=== PATIENT | female | born 1990 ===

== ENCOUNTER 2017-03-28 10:54 | Emergency (ER) | payer OTHER, SELFPAY ==
[2017-03-28 11:24] VITALS: BMI 32.6
[2017-03-28 11:26] VITALS: TEMP 98.5; O2SAT 100
--- NOTE | 2017-03-28 12:34 | RAD ---
PROCEDURE: Radiographs of Nasal Bones HISTORY: trauma COMPARISON: None available. TECHNIQUE: Frontal and lateral radiographs of the nasal bones. FINDINGS: The current study reveals a tiny lucency traversing the tip of the right and left nasal bones. Findings could represent nondisplaced fracture. The anterior nasal spine is intact. IMPRESSION: Questionable nondisplaced fracture distal tip of the right and left nasal bones.
--- NOTE | 2017-03-28 12:38 | C.PDOC ---
History Of Present Illness 27 y/o female presents to the ED with complaints of nasal pain and right shoulder pain x 10 days ago s/p trip and fall. Notes pain continues with movement. Denies LOC, nausea, vomiting, epistaxis, change in sensation or any other complaints. 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 Limitations: language barrier Onset/Duration Of Symptoms: Days Current Symptoms Are (Timing): Still Present Severity: Moderate Recent travel outside of the [place]: No Past Medical History Reviewed: Historical Data, Nursing Documentation, Vital Signs Vital Signs: Last Vital Signs Temp 98.5 F 03/28/17 11:24 Pulse 65 03/28/17 12:47 Resp 18 03/28/17 12:47 BP 110/65 03/28/17 12:47 Pulse Ox 100 03/28/17 12:50 Family History: States: Unknown Family Hx - Social History Hx Alcohol Use: No Hx Substance Use: No - Immunization History Hx Tetanus Toxoid Vaccination: No Hx Influenza Vaccination: No Hx Pneumococcal Vaccination: No Review Of Systems Except As Marked, All Systems Reviewed And Found Negative. ENT: Positive for: Nose Pain, Other (no nose bleed) Gastrointestinal: Negative for: Nausea, Vomiting Musculoskeletal: Positive for: Shoulder Pain (right) Neurological: Negative for: Headache Physical Exam - Physical Exam Appears: Non-toxic, No Acute Distress Skin: Warm, Dry, No Rash Head: Atraumatic, Normacephalic Eye(s): bilateral: Normal Inspection, PERRL, EOMI Ear(s): Bilateral: Normal Nose: No Discharge, No Epistaxis, Tenderness (mild swelling, tenderness and ecchymosis to nasal bridge. Non tender on nasal bridge.), No Septal Hematoma Oral Mucosa: Moist Throat: Normal, No Erythema, No Exudate Neck: Normal, Normal ROM, Supple Chest: Symmetrical Cardiovascular: Rhythm Regular, No Murmur Respiratory: Normal Breath Sounds, No Rales, No Rhonchi, No Wheezing Gastrointestinal/Abdominal: Normal Exam, Soft, No Tenderness Extremity: Normal ROM, Tenderness (right posterior shoulder), Capillary Refill ( <2 seconds), No Deformity, No Swelling Extremity: Bilateral: Atraumatic, Normal Color And Temperature Pulses: Right Radial: Normal Neurological/Psych: Oriented x3, Normal Speech, Normal Cognition, Normal Motor, Normal Sensation ED Course And Treatment O2 Sat by Pulse Oximetry: 100 (room air) Pulse Ox Interpretation: Normal - Other Rad Shoulder X-Ray: Viewed By Me, Read By Radiologist Interpretation: Creator : Peterson Prasad MD. Dictator : Peterson Prasad MD. Incident Response Specialist : Retread Builder : Peterson Prasad MD. Approver2 : Report Date : 03/28/2017 12:34:19. My Comment : . PROCEDURE: Radiographs of the Right Shoulder. HISTORY: trauma. COMPARISON: No prior. FINDINGS: BONES: No definitive rated graphic evidence of acute displaced fracture nor dislocation. Note however that clothing artifact partially obscures the right AC joint image series 3 number 1. JOINTS: Normal. Glenohumeral and acromioclavicular joints preserved. No osteoarthritis. SOFT TISSUES: Normal. OTHER FINDINGS: None. IMPRESSION: No evidence of acute displaced fracture nor dislocation NAsal XR X-Ray: Viewed By Me, Read By Radiologist Interpretation: PROCEDURE: Radiographs of Nasal Bones. HISTORY: trauma. COMPARISON: None available. TECHNIQUE: Frontal and lateral radiographs of the nasal bones. FINDINGS: The current study reveals a tiny lucency traversing the tip of the right and left nasal bones. Findings could represent nondisplaced fracture. The anterior nasal spine is intact. IMPRESSION: Questionable nondisplaced fracture distal tip of the right and left nasal bones. Progress Note: Plan: tramadol, XR nasal bones and right shoulder. On reassessment, patient is resting comfortably, and is in no acute distress. XR results reviewed. Pt has no nasal tip tenderness. Patient was instructed to follow up with physician/clinic in 1-2 days for further evaluation. Pt was seen and evaluated by Dr Bravo, agreed upon plan and discharge. Disposition - Disposition Disposition: HOME/ ROUTINE Disposition Time: 13:00 Condition: STABLE Additional Instructions: Anastasia velasco o la clnica en 1-3 brewer sin falta, para mas evaluacin. [place] los medicamentos martha indicado. Volver a la albert de emergencia en cualquier momento si los sntomas persisten o empeoran. 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 - Scribe Statement The provider has reviewed the documentation as recorded by the Scribe Clay Patrick All medical record entries made by the Scribe were at my direction and personally dictated by me. I have reviewed the chart and agree that the record accurately reflects my personal performance of the history, physical exam, medical decision making, and the department course for this patient. I have also personally directed, reviewed, and agree with the discharge instructions and disposition.
--- NOTE | 2017-03-28 12:42 | C.PDOC ---
Time Seen by Provider: 03/28/17 11:38 Chief Complaint (Nursing): Upper Extremity Problem/Injury Past Medical History Vital Signs: Last Vital Signs Temp 98.5 F 03/28/17 11:24 Pulse 67 03/28/17 11:24 Resp 17 03/28/17 11:24 BP 103/70 03/28/17 11:24 Pulse Ox 100 03/28/17 11:24 - Social History Hx Alcohol Use: No Hx Substance Use: No - Immunization History Hx Tetanus Toxoid Vaccination: No Hx Influenza Vaccination: No Hx Pneumococcal Vaccination: No ED Course And Treatment O2 Sat by Pulse Oximetry: 100 Disposition - Disposition Disposition: HOME/ ROUTINE Disposition Time: 12:42 Condition: STABLE Additional Instructions: Vaya a louis mdico o la clnica en 1-3 brewer sin falta, para mas evaluacin. [place] los medicamentos martha indicado. Volver a la albert de emergencia en cualquier momento si los sntomas persisten o empeoran. Instructions: Contusion in Children (ED) Print Language: ZAMBIAN - Clinical Impression Clinical Impression: Nasal contusion, Shoulder contusion
[2017-03-28 12:48] VITALS: BP 110/65; PULSE 65; RESP 18
== END 2017-03-28 13:00 | disposition home or self-care (01) ==
LOC: C.ER 10:54
DX: S00.33XA Contusion of nose, initial encounter (principal); S40.011A Contusion of right shoulder, initial encounter; W01.0XXA Fall on same level from slipping, tripping and stumbling without subsequent striking against object, initial encounter

== ENCOUNTER 2017-10-21 04:39 | Emergency (ER) | payer SELFPAY ==
[2017-10-21 04:39] VITALS: BMI 32.6
[2017-10-21 04:53] VITALS: O2SAT 98
[2017-10-21] MEDS ORDERED: Naproxen 550 mg Tab PO STA (05:23)
[2017-10-21] MEDS ORDERED: Naproxen 550 mg Tab PO ONE (05:35)
--- NOTE | 2017-10-21 06:04 | C.PDOC ---
History Of Present Illness 27 year old female presents to the ER with a complaint of right lower back pain radiating to the right leg since yesterday. Patient is also complaining of body aches, runny nose, nonproductive cough, fever, and chills for the same amount of time. Patient has been taking ibuprofen at home with no relief. Denies dysuria, hematuria, or abdominal pain. Time Seen by Provider: 10/21/17 04:42 Chief Complaint (Nursing): Flu-like Symptoms History Per: Patient History/Exam Limitations: no limitations Onset/Duration Of Symptoms: Days Current Symptoms Are (Timing): Still Present Location Of Pain: Diffuse Myalgias, Other (Right lower back radiating to right leg) Sick Contacts (Context): None Associated Symptoms: Fever, Chills, Cough, Sinus Drainage, Myalgias. denies: Sputum, Other (Dysuria, hematuria, or abdominal pain) Ear Symptoms: Bilateral: None Recent travel outside of the [place]: No Past Medical History Reviewed: Historical Data, Nursing Documentation, Vital Signs Vital Signs: Last Vital Signs Temp 99.4 F 10/21/17 04:49 Pulse 100 H 10/21/17 04:49 Resp 18 10/21/17 04:49 BP 119/73 10/21/17 04:49 Pulse Ox 98 10/21/17 06:05 Surgical History: No Surg Hx Family History: States: Unknown Family Hx - Social History Hx Alcohol Use: No Hx Substance Use: No - Immunization History Hx Tetanus Toxoid Vaccination: No Hx Influenza Vaccination: No Hx Pneumococcal Vaccination: No Review Of Systems Constitutional: Positive for: Fever, Chills ENT: Positive for: Nose Discharge Respiratory: Positive for: Cough Musculoskeletal: Positive for: Back Pain, Leg Pain, Other (Body aches) Physical Exam - Physical Exam Appears: Non-toxic, Other (Mildly uncomfortable) Skin: Normal Color, Warm, Dry Head: Atraumatic, Normacephalic Eye(s): bilateral: Normal Inspection Ear(s): Bilateral: Normal Nose: Normal Oral Mucosa: Moist Throat: Normal, No Erythema, No Exudate Neck: Normal, Supple Chest: Symmetrical, No Tenderness Cardiovascular: Rhythm Regular Respiratory: Normal Breath Sounds, No Rales, No Rhonchi, No Wheezing Gastrointestinal/Abdominal: Soft, No Tenderness Back: Paraspinal Tenderness (Right lumbar) Extremity: Normal ROM (x4) Neurological/Psych: Oriented x3, Normal Speech, Normal Motor, Normal Sensation ED Course And Treatment O2 Sat by Pulse Oximetry: 98 (room air) Pulse Ox Interpretation: Normal Progress Note: Naproxen and flexeril administered, patient also started on tamiflu. Patient reports improvement of pain and symptoms, will discharge home with Rx and instructions to follow up with PMD or return if symptoms worsen. Disposition Counseled Patient/Family Regarding: Studies Performed, Diagnosis, Need For Followup, Rx Given - Disposition Referrals: at [facility] [Outside] Non [facility] Provider, [Primary Care Provider] - Disposition: HOME/ ROUTINE Disposition Time: 06:00 Condition: STABLE Additional Instructions: SEGUIMIENTO CON FERGUSON MDICO / CLNICA EN 1-2 SPARKS USE MEDICAMENTOS SEGN LO INDICADO REGRESE AL FIORDALIZA DE EMERGENCIA SI LOS SNTOMAS EMPEORAN Prescriptions: Cyclobenzaprine [Flexeril] 10 mg PO BID PRN #15 tab PRN Reason: Muscle Spasm Naproxen 375 mg PO BID PRN #20 tablet PRN Reason: pain Oseltamivir Phosphate [Tamiflu] 75 mg PO BID #10 capsule Instructions: Sciatica (ED), Viral Syndrome (ED) Forms: [employer] (Amharic) Print Language: BAHRAINI - Clinical Impression Clinical Impression: Sciatica, Influenza-like illness - Scribe Statement The provider has reviewed the documentation as recorded by the Scribkristine Nur All medical record entries made by the Scribe were at my direction and personally dictated by me. I have reviewed the chart and agree that the record accurately reflects my personal performance of the history, physical exam, medical decision making, and the department course for this patient. I have also personally directed, reviewed, and agree with the discharge instructions and disposition.
[2017-10-21 07:25] VITALS: BP 116/77; PULSE 93; RESP 20; TEMP 99.2
== END 2017-10-21 06:38 | disposition home or self-care (01) ==
LOC: SUPCPDRO 04:39 → C.ER 04:39
DX: J11.1 Influenza due to unidentified influenza virus with other respiratory manifestations (principal); M54.30 Sciatica, unspecified side